=== PATIENT | female | born 1950 | race Caucasian/White ===

== ENCOUNTER 2018-11-17 11:19 | Emergency (ER) | payer OTHER, MEDICARE, SELFPAY ==
[2018-11-17 11:30] VITALS: BP 159/73; PULSE 100; RESP 14; TEMP 36.9; O2SAT 96; BMI 28.7
--- NOTE | 2018-11-17 12:17 | ED.WOUNDLAC ---
HPI - Wound/Laceration <Kathy Gee PA-C - Last Filed: 11/17/18 17:32> General Chief Complaint: Wound/Laceration Stated Complaint: Rt arm injury, large gash Time Seen by Provider: 11/17/18 12:05 Source: patient Mode of arrival: ambulatory Limitations: no limitations History of Present Illness HPI narrative: This 68-year-old female missed a step and fell onto cement. She states that she made an effort to protect her head as this happened in ?slow motion?, and she landed on her right forearm, causing a large laceration. She denies any other injury, denies head contusion, neck pain, or any other impact. She states she does not have any pain in her joints and no difficulty using her arm, wrist, or fingers. She states her last tetanus vaccine was in 2015 Related Data Allergies Allergy/AdvReac Type Severity Reaction Status Date / Time Sulfa (Sulfonamide Allergy Verified 11/17/18 11:30 Antibiotics) Review of Systems <Kathy Gee PA-C - Last Filed: 11/17/18 17:32> Review of Systems ROS Unobtainable: All systems reviewed & are unremarkable except as noted in HPI and below PFSH <Kathy Gee PA-C - Last Filed: 11/17/18 17:32> Medical History (Updated 11/17/18 @ 13:34 by Kathy Gee PA-C) History of colon cancer (Chronic) No pertinent family history (Chronic) Surgical History (Updated 11/17/18 @ 12:37 by Kathy Gee PA-C) No pertinent past surgical history (Chronic) Social History (Updated 11/17/18 @ 12:37 by Kathy Gee PA-C) Smoking Status: Never smoker Social History (Updated 11/17/18 @ 12:37 by Kathy Gee PA-C) Smoking Status: Never smoker Exam <Kathy Gee PA-C - Last Filed: 11/17/18 17:32> Narrative Exam Narrative: GENERAL APPEARANCE: Patient sitting comfortably, in no distress. LUNGS: Clear to auscultation bilaterally. HEART: Rate and rhythm regular with I/ GORDON, normal S1 and S2, no S3 or S4. DERMATOLOGIC: Right posterior forearm there is an irregular 8.5 cm avulsion laceration through the subcu tissue, top periosteium partly visible, slightly macerated at the distal end. When avulsed skin is pulled over there is no gap, wound depth somewhat irregular, up to 5 mm. No foreign body visible. MUSCULOSKELETAL: No tenderness over the right elbow joint, full active range of motion. No tenderness over the right forearm, wrist, hand or fingers, full active range of motion. NEUROVASCULAR: Right upper extremity warm and pink with brisk cap refill, sensation grossly intact Initial Vital Signs Initial Vital Signs: Vital Signs Temperature 98.5 F 11/17/18 11:30 Pulse Rate 100 H 11/17/18 11:30 Respiratory Rate 14 11/17/18 11:30 Blood Pressure 159/73 H 11/17/18 11:30 Pulse Oximetry 96 11/17/18 11:30 <Jo Pollard MD - Last Filed: 11/17/18 18:27> Initial Vital Signs Initial Vital Signs: Vital Signs Temperature 98.5 F 11/17/18 11:30 Pulse Rate 100 H 11/17/18 11:30 Respiratory Rate 14 11/17/18 11:30 Blood Pressure 159/73 H 11/17/18 11:30 Pulse Oximetry 96 11/17/18 11:30 Procedures <Kathy Gee PA-C - Last Filed: 11/17/18 17:32> Laceration Repair Laceration 1: Site: upper extremity Side (If applicable): right Size (cm): 8.5 Description: linear Depth: simple, single layer Local Anesthetic: lidocaine 1% and with epi Amount of anesthesia used (mL): 9 Pre-repair: wound explored, irrigated extensively and deep structures intact Skin layer closed with: nylon Size (cm): 4-0 Number of sutures: 16 Technique: simple, interrupted Course <CHELSI Alexis Last Filed: 11/17/18 17:32> Vital Signs - 8 hr 11/17/18 11:30 11/17/18 13:32 Temperature 98.5 F Pulse Rate 100 H 92 H Respiratory Rate 14 20 Blood Pressure 159/73 H Blood Pressure [Left Arm] 150/64 H Pulse Oximetry 96 <Jo Pollard MD - Last Filed: 11/17/18 18:27> Vital Signs - 8 hr 11/17/18 11:30 11/17/18 13:32 Temperature 98.5 F Pulse Rate 100 H 92 H Respiratory Rate 14 20 Blood Pressure 159/73 H Blood Pressure [Left Arm] 150/64 H Pulse Oximetry 96 Discharge Plan Departure Patient Disposition: Home Clinical Impression: Laceration Discharge Date/Time: 11/17/18 13:37 Interventions: ED Discharge Assessment Last Done: 11/17/18 13:36 Instructions: DI for Laceration Repair Activity Restrictions/Additional Instructions: Please monitor the wound carefully for any signs of infection such as increasing redness around it, draining pus, acutely increased pain or swelling or fever, and see your PCP right away if any of these occur. Please cover the wound as needed for comfort and protection, but you can leave it open to air when your relaxing at home to help it heal. The sutures should be ready to remove in 10-14 days, and you can be seen by your PCP for this. Best wishes with finishing your chemotherapy! Referrals: [facility], [place] [Other]
[2018-11-17 13:32] VITALS: BP 150/64; PULSE 92; RESP 20
== END 2018-11-17 13:37 | disposition home or self-care (01) ==
PROVIDERS: Emergency Provider Internal Medicine
DX: S51.811A Laceration without foreign body of right forearm, initial encounter (principal); W17.89XA Other fall from one level to another, initial encounter
CPT/HCPCS: 12004; 99282; 99283